=== PATIENT | female | born 1965 | race Hispanic/Latino ===

== ENCOUNTER 2017-03-16 08:34 | Day surgery (SDC) | payer MEDICARE ==
[2016-06-25 10:58] VITALS: BMI 28.1
[2017-03-16] MEDS ORDERED: Iohexol 240 (50 ml) ONE (09:14)
[2017-03-16] MEDS ORDERED: MethylPREDNISolone Depo 40 mg/ml Inj ONE (09:14)
[2017-03-16] MEDS ORDERED: Bupivacaine HCl 0.25% PF (10 ml) Inj ONE (09:14)
[2017-03-16] MEDS ORDERED: Lactated Ringer's 1,000 ML IV ONE (10:20)
[2017-03-16 15:17] VITALS: BP 108/60; PULSE 67; RESP 16; TEMP 97.2; O2SAT 99
--- NOTE | 2017-03-16 15:29 | RAD ---
PROCEDURE: Fluoroscopy HISTORY: LUMBAR RADICULOPATHY COMPARISON: None TECHNIQUE: Standard protocol for this study/examination. FINDINGS: Total fluoroscopic time (continuous mode) utilized during the procedure: 7.8 seconds. IMPRESSION: Submitted images from the current procedure: 6.0.
--- NOTE | 2017-03-17 07:36 | OP ---
PROCEDURE DATE: 03/16/2017 PREOPERATIVE DIAGNOSES: 1. Lumbar radiculopathy. 2. Lumbar herniated disc. 3. Myalgias. POSTOPERATIVE DIAGNOSES: 1. Lumbar radiculopathy. 2. Lumbar herniated disc. 3. Myalgias. PROCEDURE: 1. Left L4-L5, L5-S1 lumbar selective nerve root block. 2. Epidurogram. 3. Trigger point injections. X-RAY: 15144, Fluoroscopy of the spine. ANESTHESIA: MAC/local. SURGEON: Jeanmarie Diop MD COMPLICATIONS: None. BLOOD LOSS: 2 mL. INDICATION: This patient has intractable back and leg pain that is unresponsive to conservative management. The pain is adversely affecting quality of life and activities of daily living. TECHNIQUE: After comprehensive informed consent was obtained, the risks of the procedure explained and questions answered. The patient understands fully the risks are, but not limited to possible bleeding, infection, headache, nervous tissue injury and worsening of their pain. The patient was placed prone on the operating table in a comfortable position. Confirmation of the procedure to be performed was obtained from the patient. The skin overlying the area to be injected was cleaned in a strict sterile fashion using chlorhexidine. Sterile drapes were placed around the area to be injected. Using the C-arm in the anteroposterior view, the levels to be injected were identified under fluoroscope. Then, the C-arm was obliqued in the coronal plane until the facet joint was delineated approximately 25 degrees. The area to be injected was superficially anesthetized with 3 mL of 1% lidocaine using a 27-gauge, 1.25-inch needle. Under fluoroscopic guidance, a 22-gauge, 3.5-inch short bevel needle was advanced and directed toward the tip of the pars. In the lateral view, ideal placement of the needle was obtained with the tip in the cephalodorsal corner of the neural foramen. In the anteroposterior plane and under continuous fluoroscopy, 1 mL of non-ionic, water-soluble contrast (Omnipaque 180) was injected to visualize the nerve root and make sure there was no vascular uptake. After negative aspiration for blood, 1 mL of preservative-free 0.5% Marcaine in 80 mg of Depo-Medrol was slowly injected at each level. The patient experienced no painful paresthesia during the injection. Epidurogram: The patient underwent transforaminal epidural steroid injection today. The epidural was observed at the level of L4-L5 under AP and lateral fluoroscopic guidance. A 2 mL of Omnipaque 200 contrast was injected that evenly spread from level L3 to S1 level with posterior-anterior dye spread bilaterally at level of L4-L5 and L5-S1. There appeared to be a moderate degree spondylosis at level of L4-L5 and moderate degree of spondylosis at the level of L5-S1 with disc protrusion at the level of L4-L5. The intervertebral disc height at the level of L4-L5 was slightly less than normal and intervertebral disc height at the level of L5-S1 was well maintained. The neural foramen appeared to be patent. Good epidural dye containment from L3-S1 with intervertebral disc protrusion at the level of L4-L5, maintaining less than normal intervertebral disc height at level L4-L5. Spondylosis noted at the level of L4 through S1. Copies of the images are on file. Trigger Point Injections: A 27-gauge needle was used to inject trigger point areas in paralumbar muscles, parathoracic muscles, and upper gluteal muscles. Needle was redirected to sciatic nerve branches. Total volume of 10 mL of 0.25% Marcaine. Intermittent aspiration was done throughout with no heme or CSF aspirated throughout. Patient tolerated procedure well. DISPOSITION: Patient was taken to the recovery room in stable condition. Patient was given instructions to follow up in two weeks and was discharged in stable condition. No events or complications. Jeanmarie Diop MD
== END 2017-03-16 13:45 | disposition home or self-care (01) ==
LOC: C.SDS 08:34
PROVIDERS: ATTEND Anesthesiology Pain Medicine
DX: M51.36 Other intervertebral disc degeneration, lumbar region (principal); M51.16 Intervertebral disc disorders with radiculopathy, lumbar region
CPT/HCPCS: 64483; J1030; J7120; Q9966

== ENCOUNTER 2017-04-06 09:38 | Day surgery (SDC) | payer MEDICARE ==
[2016-06-25 10:58] VITALS: BMI 28.1
[2017-04-06 10:58] VITALS: TEMP 98.6; O2SAT 100
[2017-04-06] MEDS ORDERED: Propofol 10 mg/ml Inj (20 ML) ONE (12:30)
[2017-04-06] MEDS ORDERED: Lactated Ringer's 500 ML IV SCH (12:30)
[2017-04-06] MEDS ORDERED: Lactated Ringer's 1,000 ML IV ONE (12:36)
[2017-04-06 14:06] VITALS: BP 140/63; PULSE 62; RESP 14
== END 2017-04-06 15:00 | disposition home or self-care (01) ==
LOC: C.ENDO 09:38
PROVIDERS: ATTEND Internal Medicine Gastroenterology
DX: Z12.11 Encounter for screening for malignant neoplasm of colon (principal); K64.1 Second degree hemorrhoids; Z53.09 Procedure and treatment not carried out because of other contraindication
CPT/HCPCS: 45378; J2704; J7120

== ENCOUNTER 2017-05-25 05:47 | Day surgery (SDC) | payer MEDICARE ==
[2016-06-25 10:58] VITALS: BMI 28.1
[2017-05-25] MEDS ORDERED: Lidocaine Hydrochloride 0 ML INJ ONE (07:20)
[2017-05-25] MEDS ORDERED: MethylPREDNISolone Depo 40 mg/ml Inj ONE (07:20)
[2017-05-25] MEDS ORDERED: Iohexol 240 (50 ml) ONE (07:20)
[2017-05-25] MEDS ORDERED: Midazolam 2 MG/2 ML VIAL ONE (07:28)
[2017-05-25] MEDS ORDERED: Propofol 10 mg/ml Inj (20 ML) ONE (07:28)
[2017-05-25] MEDS ORDERED: Bupivacaine 0.25% Inj(30mL) ONE (08:17)
[2017-05-25 09:03] VITALS: TEMP 97.8; O2SAT 100
[2017-05-25 12:10] VITALS: BP 91/56; PULSE 66; RESP 15
--- NOTE | 2017-05-25 19:39 | OP ---
PROCEDURE DATE: PREOPERATIVE DIAGNOSES: 1. Lumbar radiculopathy. 2. Lumbar herniated disc. 3. Myalgias. POSTOPERATIVE DIAGNOSES: 1. Lumbar radiculopathy. 2. Lumbar herniated disc. 3. Myalgias. PROCEDURE: 1. L5-S1 bilateral lumbar selective nerve root block. 2. Epidurogram. 3. Trigger point injections. X-RAY: [id number], Fluoroscopy of the spine. ANESTHESIA: MAC/local. SURGEON: Jeanmarie Diop MD COMPLICATIONS: None. BLOOD LOSS: 2 mL. INDICATION: This patient has intractable back and leg pain that is unresponsive to conservative management. The pain is adversely affecting quality of life and activities of daily living. TECHNIQUE: After comprehensive informed consent was obtained, the risks of the procedure explained and questions answered. The patient understands fully the risks are, but not limited to possible bleeding, infection, headache, nervous tissue injury and worsening of their pain. The patient was placed prone on the operating table in a comfortable position. Confirmation of the procedure to be performed was obtained from the patient. The skin overlying the area to be injected was cleaned in a strict sterile fashion using chlorhexidine. Sterile drapes were placed around the area to be injected. Using the C-arm in the anteroposterior view, the levels to be injected were identified under fluoroscope. Then, the C-arm was obliqued in the coronal plane until the facet joint was delineated approximately 25 degrees. The area to be injected was superficially anesthetized with 3 mL of 1% lidocaine using a 27-gauge, 1.25-inch needle. Under fluoroscopic guidance, a 22-gauge, 3.5-inch short bevel needle was advanced and directed toward the tip of the pars. In the lateral view, ideal placement of the needle was obtained with the tip in the cephalodorsal corner of the neural foramen. In the anteroposterior plane and under continuous fluoroscopy, 1 mLof non-ionic, water-soluble contrast (Omnipaque 180) was injected to visualize the nerve root and make sure there was no vascular uptake. After negative aspiration for blood, 1 mL of preservative-free 0.5% Marcaine in 80 mg of Depo-Medrol was slowly injected at each level. The patient experienced no painful paresthesia during the injection. Epidurogram: The patient underwent transforaminal epidural steroid injection today. The epidural was observed at the level of L4-L5 under AP and lateral fluoroscopic guidance. A 2 mL of Omnipaque 200 contrast was injected that evenly spread from level L3 to S1 level with posterior-anterior dye spread bilaterally at level of L4-L5 and L5-S1. There appeared to be a moderate degree spondylosis at level of L4-L5 and moderate degree of spondylosis at the level of L5-S1 with disc protrusion at the level of L4-L5. The intervertebral disc height at the level of L4-L5 was slightly less than normal and intervertebral disc height at the level of L5-S1 was well maintained. The neural foramen appeared to be patent. Good epidural dye containment from L3-S1 with intervertebral disc protrusion at the level of L4-L5, maintaining less than normal intervertebral disc height at level L4-L5. Spondylosis noted at the level of L4 through S1. Copies of the images are on file. Trigger Point Injections: A 27-gauge needle was used to inject trigger point areas in paralumbar muscles, parathoracic muscles, and upper gluteal muscles. Needle was redirected to sciatic nerve branches. Total volume of 10 mL of 0.25% Marcaine. Intermittent aspiration was done throughout with no heme or CSF aspirated throughout. Patient tolerated procedure well. DISPOSITION: Patient was taken to the recovery room in stable condition. Patient was given instructions to follow up in two weeks and was discharged in stable condition. No events or complications. Jeanmarie Diop MD cc:
--- NOTE | 2017-05-26 08:29 | RAD ---
PROCEDURE: Intraoperative Fluoroscopy. HISTORY: Lumbar radiculopathy FINDINGS: Fluoroscopic assistance was provided for L5 S1 epidural injections. Please refer to the operative report from JO[facility] Pool.
== END 2017-05-25 09:56 | disposition home or self-care (01) ==
LOC: C.SDS 05:47
PROVIDERS: ATTEND Anesthesiology Pain Medicine
DX: M51.16 Intervertebral disc disorders with radiculopathy, lumbar region (principal)
CPT/HCPCS: 20552; 62323; J1030; J2250; J2704; Q9966

== ENCOUNTER 2018-02-15 06:42 | Day surgery (SDC) | payer MEDICARE ==
[2018-02-15 07:45] VITALS: BMI 31.6
[2018-02-15 08:20] VITALS: O2SAT 100
[2018-02-15] MEDS ORDERED: Lactated Ringer's 500 ML IV SCH (09:30)
[2018-02-15] MEDS ORDERED: Lactated Ringer's 500 ML IV ONE (09:34)
--- NOTE | 2018-02-15 09:34 | CP.SDSHP ---
Same Day Surgery H & P - History Proposed Procedure: colonoscopy Pre-Op Diagnosis: screening - Previous Medical/Surgical History Comments: depression - Allergies Allergies: Allergies No Known Allergies Allergy (Verified 02/15/18 07:45) - Physical Exam General Appearance: NAD Vital Signs: Vital Signs 02/15/18 08:03 Temperature 97.4 F L Pulse Rate 61 Respiratory 19 Rate Blood Pressure 120/64 O2 Sat by Pulse 100 Oximetry Mental Status: Alert & Oriented x3 Neuro: WNL Heart: WNL Lungs: WNL GI: WNL - {Optional Preform as Required} Abdomen: WNL - Impression Pt. Evaluated Today:Candidate for Anesthesia & Procedure: Yes - Date & Time Date: 02/15/18 Time: 09:34 Short Stay Discharge - Short Stay Discharge Admitting Diagnosis/Reason for Visit: SCREENING Disposition: HOME/ ROUTINE
[2018-02-15] MEDS ORDERED: Propofol 10 mg/ml Inj (20 ML) ONE ×3 (09:39→10:12)
[2018-02-15] MEDS ORDERED: Midazolam 2 MG/2 ML VIAL ONE (09:39)
[2018-02-15 10:51] VITALS: TEMP 98.9
[2018-02-15 13:35] VITALS: BP 130/78; PULSE 65; RESP 15
== END 2018-02-15 13:30 | disposition home or self-care (01) ==
LOC: C.ENDO 06:42
PROVIDERS: ATTEND Internal Medicine Gastroenterology
DX: Z12.11 Encounter for screening for malignant neoplasm of colon (principal); D12.5 Benign neoplasm of sigmoid colon; K64.8 Other hemorrhoids
CPT/HCPCS: 45380; 82948; 88305; J2250; J2704; J7120